=== PATIENT | female | born 1995 | race African-American/Black ===

== ENCOUNTER 2023-04-24 11:30 | Outpatient (CLI) | payer OTHER ==
[2023-04-24 18:44] LABS: BASOPHILS % (AUTO) 0.5 %; EOSINOPHILS % (AUTO) 0.7 %; HCT - HEMATOCRIT 38.2 % (37.0-47.0); HGB - HEMOGLOBIN 11.9 g/dL (12.0-16.0); LYMPHOCYTES # (AUTO) 1.6 10^3/uL (1.5-3.5); MEAN CORPUSCULAR HEMOGLOBIN 25.3 pg (27.0-31.0); MEAN CORPUSCULAR HGB CONC 31.2 g/dL (32.0-36.0); MEAN CORPUSCULAR VOLUME 81.3 fL (81.0-99.0); MEAN PLATELET VOLUME 10.7 fL (7.9-10.8); MONOCYTES # (AUTO) 0.2 10^3/uL (0.0-1.0); MONOCYTES % (AUTO) 5.2 %; NEUTROPHILS # (AUTO) 2.6 10^3/uL (1.5-6.6); NEUTROPHILS % (AUTO) 57.6 %; PLT - PLATELET COUNT 336 10^3/uL (130-450); RED CELL DISTRIBUTION WIDTH 13.7 % (12.0-15.0); WHITE BLOOD COUNT 4.4 x10^3/uL (4.8-10.8)
[2023-04-24 18:55] LABS: CALCIUM 9.9 mg/dL (8.5-10.3); CREATININE 0.8 mg/dL (0.6-1.3); CRP - C-REACTIVE PROTEIN 0.6 mg/dL (<0.5); POTASSIUM 3.8 mmol/L (3.5-4.5)
== END 2023-04-24 11:45 | disposition home or self-care (01) ==
LOC: LAB.N 11:30
PROVIDERS: ATTEND Emergency Medicine
DX: R51.9 Headache, unspecified (principal)
CPT/HCPCS: 36415; 80048; 85025; 85651; 86140

== ENCOUNTER 2023-11-24 16:35 | Outpatient (CLI) | payer OTHER ==
--- NOTE | 2023-11-25 17:40 | Ultrasound Report ---
PROCEDURE: Pelvic w/Transvaginal INDICATIONS: TROUBLE CONCEIVING TECHNIQUE: Real-time scanning was performed of the pelvic organs, with image documentation. Additional endovagi nal scanning was necessary due to incomplete visualization of the adnexal and endometrial structures by transabdominal scanning. COMPARISON: None. FINDINGS: Uterus: Uterus is anteverted and enlarged in size at 8.7 x 5.3 x 5.8 cm. The myometrium is heteroge neous. 2.5 x 2.4 x 2.2 cm subserosal fibroid in left anterior myometrium is seen. The endometrium saba sures 1.5 mm in combined thickness. No endometrial mass or fluid. Ovaries: The right ovary measures 3.6 x 2.4 x 2.0 cm, with a calculated ovarian volume of 9.25 cc. The left ovary measures 2.4 x 1 x 0.9 cm, with a calculated ovarian volume of 1.13 cc. The ovaries h ave a normal sonographic appearance. Likely corpus luteal cyst is seen in right ovary measures 1.4 x 2.0 x 1.6 cm in size. Less than 12 follicles can be seen in each ovary. No adnexal masses are seen. No cystic lesions measuring greater than 3 cm. Other: No pathologic free abdominal or pelvic fluid. IMPRESSION: 1. Single subserosal fibroid as described above. Mildly enlarged uterus with heterogeneous myometrial echotexture. No endometrial mass or fluid. 2. Likely corpus luteal cyst in right ovary as above. No solid-appearing ovarian lesion. Reviewed by: Camilo Hawthorne MD on 11/25/2023 5:38 PM PDT Approved by: Camilo Hawthorne MD on 11/25/2023 5:38 PM PDT Station ID: [id number]
== END 2023-11-24 16:36 | disposition home or self-care (01) ==
LOC: DI 16:35
PROVIDERS: ATTEND Nurse Practitioner Family
DX: D25.2 Subserosal leiomyoma of uterus (principal); N97.9 Female infertility, unspecified; N85.2 Hypertrophy of uterus

== ENCOUNTER 2024-05-01 16:15 | Outpatient (CLI) | payer OTHER | END 2024-05-01 16:16 | disposition home or self-care (01) | LOC: LAB 16:15 | PROVIDERS: ATTEND Obstetrics & Gynecology | DX: N97.0 Female infertility associated with anovulation (principal) | CPT/HCPCS: 36415; 84144 ==

== ENCOUNTER 2024-05-22 15:52 | Outpatient (CLI) | payer OTHER | END 2024-05-22 15:53 | disposition home or self-care (01) | LOC: LAB.N 15:52 | PROVIDERS: ATTEND Obstetrics & Gynecology | DX: N97.0 Female infertility associated with anovulation (principal) | CPT/HCPCS: 36415; 84144 ==

== ENCOUNTER 2025-02-10 06:53 | Inpatient (IN) ==
[2025-02-10] MEDS ORDERED: CARBOPROST TROMETHAMINE 250 MCG/ML VIAL IM PRN (08:23)
[2025-02-10] MEDS ORDERED: NIFEdipine 10 MG CAPSULE PO PRN ×2 (08:23→20:57)
[2025-02-10] MEDS ORDERED: LABETALOL 20 MG/4 ML SYRINGE IVP PRN ×5 (08:23→20:57)
[2025-02-10] MEDS ORDERED: OXYTOCIN/SODIUM CHLORIDE 500 ML IV PRN ×2 (08:23→20:57)
[2025-02-10] MEDS ORDERED: lidocaine 1% 20 ML MDV ID PRN (08:23)
[2025-02-10] MEDS ORDERED: DOCUSATE SODIUM 100 MG CAPSULE PO PRN (08:23)
[2025-02-10] MEDS ORDERED: hydrALAZINE INJ 20 MG/ML VIAL IVP PRN ×3 (08:23→20:57)
[2025-02-10] MEDS ORDERED: CALCIUM CARBONATE CHEW 500 MG TABLET PO PRN (08:23)
[2025-02-10] MEDS ORDERED: METHYLERGONOVINE 0.2 MG/ML VIAL IM PRN (08:23)
[2025-02-10] MEDS ORDERED: SODIUM CHLORIDE FLUSH 0.9% 10 ML SYRINGE IVP PRN (08:23)
[2025-02-10] MEDS ORDERED: ONDANSETRON ODT 4 MG TABLET PO PRN (08:23)
[2025-02-10] MEDS ORDERED: miSOPROStoL 200 MCG TABLET BC PRN (08:23)
[2025-02-10] MEDS ORDERED: TERBUTALINE 1 MG/ML VIAL SUBQ PRN (08:23)
[2025-02-10] MEDS ORDERED: OXYTOCIN 10 UNIT/ML VIAL IM PRN (08:23)
[2025-02-10] MEDS ORDERED: miSOPROStoL 200 MCG TABLET PR PRN (08:23)
--- NOTE | 2025-02-10 08:52 | HISTORY & PHYSICAL EXAMINATION ---
Admit History Smoking Status: Never smoker Other Maternal History Other Maternal History: HPI: Patient is a 29-year-old G1, P0 at 40 weeks 4 days gestation presenting with contractions. She been rodriguez strongly since yesterday and came to triage several times. She would like to stay even if means augmentation. She had mildly elevated blood pressures on arrival, but repeats were normal. Labs were normal.. She has good movement. Denies loss of fluid. No FORREST/BV or RUQP. No vaginal bleeding. Denies nausea and vomiting. Denies urinary urgency or dysuria. All other symptoms reviewed and were negative except per HPI. Course Low Dose Aspirin at 12 weeks ALLERGIES NKDA RX: PNV, Aspirin Obseity: NST at 36 weeks ordered. Blood type: A+ Antibody: negative CBC: H/H 10.5/33.4 plt 307 RUB:immune VZV:immune HBsAg:Negative HepC: NR RPR/AB-EIA: NR HIV: NR PAP:05/2023 - normal GC/CT: 07/22 negative HSV:Denies in self and partner Genetic testing: declines Influenza: declines Covid:Received initial series. Declines booster. 50gm OGCT: 113 3HR GTT: TDAP: 11/26/24 Breast Pump: has one RPR: NR 3rd trimester CBC: 12.2/36.5 212 EPDS: 0 GBS: 01/14/2025 neg Contraception: 6-week IUD. Meds/Allgy Home Medications Ambulatory Orders Medication Instructions Recorded Confirmed aspirin 81 mg tablet,delayed 81 mg PO QDAY 11/18/24 release (Adult Aspirin Regimen) vits no.126-ferrous fum 1 tab PO QDAY #30 tab s 12/16/24 02/04/25 28 mg iron-folic acid 800 mcg tablet (Classic ) Allergies Allergies Allergy/AdvReac Type Severity Reaction Status Date / Time No Known Drug Allergies Allergy Verified 01/22/25 15:16 PFSH Active Problems All Active Problems (Updated 02/10/25 @ 08:51 by Rell Bang MD) Elevated blood pressure reading without diagnosis of hypertension (Acute) 40 weeks gestation of (Acute) Obesity affecting in third trimester (Acute) Encounter for screening for Streptococcus B (Acute) Anemia affecting (Acute) Supervision of normal (Acute) (Acute) Family History Family History (Updated 06/24/24 @ 15:43 by Kandi Cabrera RN) Aunt Lung cancer Social History Social History (Updated 06/24/24 @ 15:44 by Kandi Cabrera RN) Smoking Status: Never smoker Second hand tobacco smoke exposure: No Do you vape?: No Living arrangement: At home Marital Status: Living Condition: With spouse/s.o. 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 Respiratory: Normal rate of respiration. No accessory muscle use, normal respiratory effort. Cardiovascular: Regular rate and rhythm Abdomen: Gravid, nontender, nondistended Extremities: Normal range of motion Neuro: Oriented x3. Normal movements Psych: Appropriate mood and affect. Normal judgment and insight SVE: 2/70/-1 FHT: 150 BPM baseline, moderate variability, accelerations absent, no decelerations. Nonreactive NST [place]: Every 3 minutes Plan for Labor Plan For Labor I expect patient to be DC'd or transferred within 96 hours.: Yes Conclusion/Plan Problem List (1) 40 weeks gestation of : Plan: Admit to L&D, admit labs, epidural at patient's request Will recheck cervix in 1 hour, if amenable, amniotomy. Will consider oxytocin if not progressing. (2) Elevated blood pressure reading without diagnosis of hypertension: Plan: Continue to monitor (3) Obesity affecting in third trimester: Plan: As above. Qualifiers: Obesity type affecting : other obesity due to excess calories Qualified Code(s): O99.213 - Obesity complicating , third trimester; E66.09 - Other obesity due to excess calories
--- OUTSIDE RECORDS SUMMARY | 2025-02-10 09:14 | EXTERNAL MEDICAL SUMMARY RPT | Continuity of Care Document ---
Author Organization [place] Address [address] [place] [id number] Phone Problems date description facility 2024-11-13 14:37 Encounter for superv ision of normal , unspecified, unspecified trimester [facility] 2024-11-14 00:04 Encounter for superv ision of normal , unspecified, unspecified trimester [facility] 2024-11-26 15:47 [facility] 2024-12-10 15:10 [facility] 2025-01-15 00:02 Encounter for screeni ng for Streptococcus B [facility] 2025-01-16 08:02 Encounter for screeni ng for Streptococcus B [facility] 2025-01-21 08:28 Encounter for screeni ng for Streptococcus B [facility] 2025-01-22 16:36 Obesity complicating , third trimester [facility] 2025-02-09 20:33 Encounter for superv ision of normal , unspecified, unspecified trimester [facility] Results/Labs test date facility value unit notes Result panel 1 MEAN PLATELET VOLUME 2024-11-13 15:47 [facility] 11.1 fl (missing) GLUCOSE,1H PP 50GM DOSE 2024-11-13 15:47 [facility] 113 mg/dl Social History date description facility
[2025-02-10 09:30] LABS: BASOPHILS % (AUTO) 0.2 %; HCT - HEMATOCRIT 41.1 % (37.0-47.0); LYMPHOCYTES # (AUTO) 1.2 10^3/uL (1.5-3.5); LYMPHOCYTES % (AUTO) 9.5 %; MEAN CORPUSCULAR HEMOGLOBIN 29.5 pg (27.0-31.0); MEAN CORPUSCULAR HGB CONC 34.1 g/dL (32.0-36.0); MEAN CORPUSCULAR VOLUME 86.7 fL (81.0-99.0); MONOCYTES # (AUTO) 0.6 10^3/uL (0.0-1.0); MONOCYTES % (AUTO) 4.6 %; NEUTROPHILS # (AUTO) 10.6 10^3/uL (1.5-6.6); NEUTROPHILS % (AUTO) 85.5 %; PLT - PLATELET COUNT 179 10^3/uL (130-450); RED BLOOD COUNT 4.74 10^6/uL (4.20-5.40); RED CELL DISTRIBUTION WIDTH 13.2 % (12.0-15.0); WHITE BLOOD COUNT 12.4 x10^3/uL (4.8-10.8)
[2025-02-10 09:46] LABS: ALBUMIN 3.6 g/dL (3.2-5.5); ALBUMIN/GLOBULIN RATIO 1.3 (1.0-2.2); BILIRUBIN,TOTAL 0.4 mg/dL (0.2-1.0); CALCIUM 9.4 mg/dL (8.5-10.3); CREATININE 0.6 mg/dL (0.6-1.3); POTASSIUM 3.7 mmol/L (3.5-4.5); TOTAL PROTEIN 6.3 g/dL (6.4-8.9)
[2025-02-10] MEDS: SODIUM CHLORIDE FLUSH 0.9% 10 ML SYRINGE IVP SCH (10:42)
[2025-02-10] MEDS: fentaNYL 100 MCG/2 ML VIAL IVP PRN (11:11)
--- NOTE | 2025-02-10 11:37 | PHARMACY PROGRESS NOTE ---
Best Possible Medication History Admit Date and Time: 02/10/25 [id number] Home Medications Medication Instructions Recorded Confirmed Type aspirin 81 mg tablet,delayed 81 mg PO DAILY 11/18/24 0 02/10/25 History release (Adult Aspirin Regimen) vits no.126-ferrous fum 1 tab PO DAILY 02/10/25 History 28 mg iron-folic acid 800 mcg tablet (Classic ) Processed by: Pharmacy Medications reviewed in ED?: No Medication History completed: Yes Patient Interview: Pt unable to participate Secondary Source(s): Physician records and Previous admit records [facility] Statement: As the person ultimately responsible for medication therapy, providers are able to order a medication from an existing home medication list in [facility] via the "Reconcile Routine" prior to Confirmation of that medication by production support developer. Such practice is discouraged except when the physician, in their clinical judgment, deems that a medical need exists for a medication without regard to previous use.
[2025-02-10] MEDS ORDERED: ROPIVACAINE 0.2% 200 MG/100 ML BAG EP ONE (12:27)
[2025-02-10] MEDS: LACTATED RINGERS 1,000 ML IV PRN (12:28)
[2025-02-10] MEDS ORDERED: ONDANSETRON 4 MG/2 ML VIAL IVP PRN (13:09)
[2025-02-10] MEDS ORDERED: NALOXONE 0.4 MG/ML VIAL IVP PRN ×2 (13:09→20:57)
[2025-02-10] MEDS ORDERED: diphenhydrAMINE INJ 50 MG/ML VIAL IVP PRN (13:09)
[2025-02-10] MEDS ORDERED: ROPIVACAINE 0.2% 200 MG/100 ML BAG EP PRN (13:09)
[2025-02-10] MEDS ORDERED: METOCLOPRAMIDE 10 MG/2 ML VIAL IVP PRN (13:09)
[2025-02-10] MEDS ORDERED: LACTATED RINGERS 500 ML IV ONE (13:09)
[2025-02-10] MEDS ORDERED: NALBUPHINE 10 MG/ML AMP IVP PRN (13:09)
[2025-02-10] MEDS ORDERED: ePHEDrine 50 MG/ML VIAL IVP ONE (13:12)
--- NOTE | 2025-02-10 13:12 | ANESTHESIA PROCEDURE NOTE ---
Pre-Anesthesia VS, & Labs Diagnosis Surgical Diagnosis:: active labor Procedure Procedure: labor epidural Vitals Vital Signs: Temp Pulse Resp BP 36.8 C 88 16 141/83 H 02/10/25 08:29 02/10/25 08:29 02/10/25 08:29 02/10/25 08:29 NPO NPO: >8 hours Is Patient ?: Yes Lab Results Current Lab Results: Laboratory Tests 02/10/25 09:00: WBC 12.4 H, RBC 4.74, Hgb 14.0, Hct 41.1, MCV 86.7, MCH 29.5, MCHC 34.1, RDW 13.2, Plt Count 179, MPV 12.0 H, Neut # (Auto) 10.6 H, Lymph # (Auto) 1.2 L, [place] # (Auto) 0.6, Eos # (Auto) 0.0, Baso # (Auto) 0.0, Absolute Nucleated RBC 0.00, Nucleated RBC % 0.0, Sodium 137, Potassium 3.7, Chloride 107, Carbon Dioxide 21, Anion Gap 9.0, BUN 7, Creatinine 0.6, Estimated GFR (MDRD) 141, Glucose 116 H, Calcium 9.4, Total Bilirubin 0.4, AST 18, ALT 12, Alkaline Phosphatase 85, Total Protein 6.3 L, Albumin 3.6, Globulin 2.7, Albumin/Globulin Ratio 1.3, Blood Type A POSITIVE, Antibody Screen NEGATIVE 02/10/25 09:00 02/10/25 09:00 Meds/Allgy Home Medications Ambulatory Orders Medication Instructions Recorded Confirmed aspirin 81 mg tablet,delayed 81 mg PO DAILY 11/18/24 0 02/10/25 release (Adult Aspirin Regimen) vits no.126-ferrous fum 1 tab PO DAILY 02/10/25 28 mg iron-folic acid 800 mcg tablet (Classic ) Allergies Allergies Allergy/AdvReac Type Severity Reaction Status Date / Time No Known Drug Allergies Allergy Verified 01/22/25 15:16 PFSH Active Problems All Active Problems (Updated 02/10/25 @ 08:51 by Rell Bang MD) Elevated blood pressure reading without diagnosis of hypertension (Acute) 40 weeks gestation of (Acute) Obesity affecting in third trimester (Acute) Encounter for screening for Streptococcus B (Acute) Anemia affecting (Acute) Supervision of normal (Acute) (Acute) Family History Family History (Updated 06/24/24 @ 15:43 by Kandi Cabrera RN) Aunt Lung cancer Social History Social History (Updated 06/24/24 @ 15:44 by Kandi Cabrera RN) Smoking Status: Never smoker Second hand tobacco smoke exposure: No Do you dip or chew tobacco?: No Do you vape?: No Living arrangement: At home Marital Status: Living Condition: With spouse/s.o. Do you feel safe in your home environment?: Yes Suffered physical, verbal, emotional, or financial abuse?: No History of Abuse: No ETOH Use: None Substance Use: denies use Are you sexually active?: Yes Occupation: Teacher Anesthesia Exam (Expanded) Exam General: Alert, Oriented x3, Cooperative and Moderate distress Dental: WNL Mouth Opening: Greater than 4 Fingerbreadths Neck Mobility: Normal Mallampati classification: II Thyromental Distance: greater than 6 cm Respiratory: Lungs clear Cardiovascular: Regular rate Exam Exam Vital Signs: Vital Signs x48h Temp Pulse Resp BP 02/10/25 08:29 36.8 C 88 16 141/83 H Plan Problem List (1) 40 weeks gestation of : Plan: Admit to L&D, admit labs, epidural at patient's request Will recheck cervix in 1 hour, if amenable, amniotomy. Will consider oxytocin if not progressing. (2) Elevated blood pressure reading without diagnosis of hypertension: Plan: Continue to monitor (3) Obesity affecting in third trimester: Plan: As above. Qualifiers: Obesity type affecting : other obesity due to excess calories Qualified Code(s): O99.213 - Obesity complicating , third trimester; E66.09 - Other obesity due to excess calories Plan Anesthesia Type: Epidural Consent for Procedure(s) Verified and Reviewed: Yes Code Status: Attempt Resuscitation ASA Classification ASA classification: 2-Mild systemic disease Is this case an emergency?: No
[2025-02-10] MEDS: ePHEDrine 50 MG/ML VIAL IVP PRN (13:15)
--- NOTE | 2025-02-10 13:31 | PROVIDER PROGRESS NOTE ---
Subjective Subjective Subjective: Patient very comfortable following epidural placement. Drop in blood pressure following epidural, followed by significant decelerations. Anesthesia aware and ephedrine given IV push x 1 dose. SVE 5/100/-2 intact. Decided to hold on amniotomy until strip more reassuring. Will place order for IV pitocin augmentation when can safely be titrated by unit protocol. Will consider amniotomy as next intervention if not spontaneously ruptured at this time. Current Medications Current Medications Current Medications: Current Medications Generic Name Dose Route Start Last Admin Trade Name Freq PRN Reason Stop Dose Admin Acetaminophen 1,000 mg 02/10/25 08:23 Acetaminophen 500 Mg Tablet PO Q8HR PRN Mild Pain or Fever>38C(100.4F) Calcium Carbonate/Glycine 1,000 mg 02/10/25 08:23 Calcium Carbonate Chew 500 Mg Tablet PO Q6HR PRN Heartburn Carboprost Tromethamine 250 mcg 02/10/25 08:23 Carboprost Tromethamine 250 Mcg/Ml Vial IM .ONCE PRN Hemorrhage Diphenhydramine HCl 12.5 - 25 mg 02/10/25 13:09 Diphenhydramine Inj 50 Mg/Ml Vial IVP Q6HR PRN ITCHING Docusate Sodium 200 mg 02/10/25 08:23 Docusate Sodium 100 Mg Capsule PO BID PRN Constipation Ephedrine Sulfate 5 mg 02/10/25 13:09 02/10/25 13:15 Ephedrine 50 Mg/Ml Vial IVP 5 mg Q5M PRN Administration For SBP<100;give until SBP>100 Fentanyl 50 mcg 02/10/25 08:23 02/10/25 12:11 Fentanyl 100 Mcg/2 Ml Vial IVP 50 mcg Q1H PRN Administration Severe Pain (score 7-10) Hydralazine HCl 5 - 10 mg 02/10/25 08:23 Hydralazine Inj 20 Mg/Ml Vial IVP Q20M PRN SBP> or= 160 OR DBP> or= 110 Protocol Lactated Ringer's 500 mls @ 999 mls/hr 02/10/25 08:23 Lr IV PRN PRN PER PHYSICIAN ORDER Oxytocin/Sodium Chloride 500 mls @ 999 mls/hr 02/10/25 08:23 Pitocin/Sodium Chloride IV PRN PRN POST- HEMORR PREVENTION Protocol 999 MILLIUNIT/MIN Tranexamic Acid 1,000 mg in 100 mls @ 600 mls/hr 02/10/25 08:23 Tranexamic 1,000 Mg/100ml-Nacl IV Q30M PRN EBL >1200mL and within 3hr Lactated Ringer's 500 mls @ 999 mls/hr 02/10/25 13:09 Lr IV 02/10/25 13:39 ONCE ONE Ropivacaine 200 mg in 100 mls @ 0 mls/hr 02/10/25 13:09 Naropin 0.2% EP PRN PRN PAIN Protocol Per Protocol Labetalol HCl 20 - 80 mg 02/10/25 08:23 Labetalol 20 Mg/4 Ml Syringe IVP Q10M PRN SBP> or= 160 OR DBP> or= 110 Protocol Labetalol HCl 20 mg 02/10/25 08:23 Labetalol 20 Mg/4 Ml Syringe IVP .ONCE PRN SBP> or= 160 OR DBP> or= 110 Protocol Labetalol HCl 20 - 40 mg 02/10/25 08:23 Labetalol 20 Mg/4 Ml Syringe IVP Q10M PRN SBP> or= 160 OR DBP> or= 110 Protocol Lidocaine HCl 20 ml 02/10/25 08:23 Lidocaine 1% 20 Ml Mdv ID 02/13/25 08:23 .ONCE PRN PERINEAL REPAIR Methylergonovine Maleate 0.2 mg 02/10/25 08:23 Methylergonovine 0.2 Mg/Ml Vial IM .ONCE PRN Hemorrhage Metoclopramide HCl 10 mg 02/10/25 13:09 Metoclopramide 10 Mg/2 Ml Vial IVP Q6HR PRN Nausea / Vomiting Misoprostol 600 mcg 02/10/25 08:23 Misoprostol 200 Mcg Tablet BC .ONCE PRN Hemorrhage Misoprostol 800 mcg 02/10/25 08:23 Misoprostol 200 Mcg Tablet MN .ONCE PRN Hemorrhage Nalbuphine HCl 2.5 - 5 mg 02/10/25 13:09 Nalbuphine 10 Mg/Ml Amp IVP Q4H PRN ITCHING Naloxone HCl 0.1 mg 02/10/25 13:09 Naloxone 0.4 Mg/Ml Vial IVP Q2M PRN RR<8 Nifedipine 10 - 20 mg 02/10/25 08:23 Nifedipine 10 Mg Capsule PO Q20M PRN SBP> or= 160 OR DBP> or= 110 Protocol Ondansetron HCl 4 mg 02/10/25 08:23 Ondansetron Odt 4 Mg Tablet PO Q4HR PRN Nausea / Vomiting Ondansetron HCl 4 mg 02/10/25 13:09 Ondansetron 4 Mg/2 Ml Vial IVP Q6HR PRN Nausea / Vomiting Oxytocin 10 unit 02/10/25 08:23 Oxytocin 10 Unit/Ml Vial IM .ONCE PRN Step One if no IV access. Sodium Chloride 10 ml 02/10/25 08:23 Sodium Chloride Flush 0.9% 10 Ml Syringe IVP PRN PRN NEEDED PER PROVIDER ORDERS Sodium Chloride 10 ml 02/10/25 09:00 02/10/25 10:42 Sodium Chloride Flush 0.9% 10 Ml Syringe IVP 10 ml Q8H АНДРЕЙ Administration Terbutaline Sulfate 0.25 mg 02/10/25 08:23 Terbutaline 1 Mg/Ml Vial SUBQ .ONCE PRN Tachystole Objective Vital Signs/Intake & Output Vital Signs: Vital Signs x48h Temp Pulse Resp BP 02/10/25 08:29 36.8 C 88 16 141/83 H Intake & Output: Intake & Output 02/07/25 02/08/25 02/09/25 02/10/25 23:59 23:59 23:59 23:59 Weight (kg) 258 lb 15.985 oz Lab Results 02/10/25 09:00 02/10/25 09:00 Other Labs: Lab Results x24hrs 02/10/25 Range/Units 09:00 WBC 12.4 H (4.8-10.8) x10^3/uL RBC 4.74 (4.20-5.40) 10^6/uL Hgb 14.0 (12.0-16.0) g/dL Hct 41.1 (37.0-47.0) % MCV 86.7 (81.0-99.0) fL MCH 29.5 (27.0-31.0) pg MCHC 34.1 (32.0-36.0) g/dL RDW 13.2 (12.0-15.0) % Plt Count 179 (130-450) 10^3/uL MPV 12.0 H (7.9-10.8) fL Neut # (Auto) 10.6 H (1.5-6.6) 10^3/uL Lymph # (Auto) 1.2 L (1.5-3.5) 10^3/uL [place] # (Auto) 0.6 (0.0-1.0) 10^3/uL Eos # (Auto) 0.0 (0.0-0.7) 10^3/uL Baso # (Auto) 0.0 (0.0-0.1) 10^3/uL Absolute Nucleated RBC 0.00 x10^3/uL Nucleated RBC % 0.0 /100WBC Sodium 137 (135-145) mmol/L Potassium 3.7 (3.5-4.5) mmol/L Chloride 107 (101-111) mmol/L Carbon Dioxide 21 (21-32) mmol/L Anion Gap 9.0 (6-13) BUN 7 (6-20) mg/dL Creatinine 0.6 (0.6-1.3) mg/dL Estimated GFR (MDRD) 141 (>89) Glucose 116 H (74-104) mg/dL Calcium 9.4 (8.5-10.3) mg/dL Total Bilirubin 0.4 (0.2-1.0) mg/dL AST 18 (10-42) IU/L ALT 12 (10-60) IU/L Alkaline Phosphatase 85 (42-121) IU/L Total Protein 6.3 L (6.4-8.9) g/dL Albumin 3.6 (3.2-5.5) g/dL Globulin 2.7 (2.1-4.2) g/dL Albumin/Globulin Ratio 1.3 (1.0-2.2) Blood Type A POSITIVE Antibody Screen NEGATIVE Assessment/Plan Problem List (1) 40 weeks gestation of : (2) Elevated blood pressure reading without diagnosis of hypertension: (3) Obesity affecting in third trimester: Qualifiers: Obesity type affecting : other obesity due to excess calories Qualified Code(s): O99.213 - Obesity complicating , third trimester; E66.09 - Other obesity due to excess calories
[2025-02-10] MEDS: OXYTOCIN/SODIUM CHLORIDE 500 ML IV SCH (14:53)
[2025-02-10] MEDS: ACETAMINOPHEN 500 MG TABLET PO PRN (18:11)
--- NOTE | 2025-02-10 18:15 | PROVIDER PROGRESS NOTE ---
Labor Progress Note Labor Progress Note Labor Progress Note/Additional Text: SROM 1705, clear fluid. Patient feeling increased pressure, SVE 8/100/0 pitocin 4mu/min but decreased to 2mu/min r/t tachysystole. Patient afebrile 98.4F, increasing maternal pulse (up to 130's) but shivering. Slowly increasing FHT baseline 155-160 with excellent variability, + accelerations, - decelerations. Will trial PO tylenol.
[2025-02-10] MEDS: TRANEXAMIC ACID IN NACL 1,000 MG/100 ML BAG IV PRN (20:02)
[2025-02-10] MEDS ORDERED: SIMETHICONE CHEW 80 MG TABLET PO PRN (20:57)
[2025-02-10] MEDS ORDERED: IBUPROFEN 600 MG TABLET PO PRN (20:57)
[2025-02-10] MEDS ORDERED: LABETALOL 5 MG/1 ML 20 ML MDV IVP PRN (20:57)
[2025-02-10] MEDS: DOCUSATE SODIUM 100 MG CAPSULE PO SCH (21:00)
--- NOTE | 2025-02-10 21:17 | DELIVERY NOTE ---
Delivery Note Delivery Comments (Free Text/Narrative) Delivery Comments (Free Text/Narrative): This 29 -year-old, @ 40+4 weeks gestation presented on 02/10/2025 @ 0800 and in stable condition. Cervix was 3cm and Vertex presentation by kane's. GBS negative. Contractions continued to increase in intensity and duration. Minimal cervical change by lunchtime and she desired an epidural. Following epidural she had a stretch of recurrent late/variables that resolved with fluid bolus and ephedrine. recovery with return to near baseline pressures. Oxytocin maximum dose 4mu/min was initated prior to second stage. FHR pattern demonstrated 155 baseline in a category I prior to second stage. Normal labor course. SROM @ 1705. She then progressed to complete/complete @ 1825 and second stage began. : Normal spontaneous vaginal delivery of a viable female on 02/10/2025 @ 1956. No nuchal cord. Attempted delivery of the body was unsuccessful, despite gentle traction of the head. Asked for [place] position, and attempted removal of posterior arm. After assessing the patient and attempting rotational maneuvers, the anterior shoulder had already been rotated out of impaction, but the large body was not delivering with gentle traction. I attempted to remove the posterior arm, but was unable, so I was able to place my fingers under the posterior axilla and deliver the posterior (right) shoulder with gentle traction. The rest of the body delivered thereafter and was placed on mother's chest where she was stimulated and responded well. On exam, she appeared to have movement of bilateral upper extremities. We discussed the shoulder dystocia with the family. In total 60 seconds elapse for delivery of head to delivery of body including reduction of nuchal cord and resolution of shoulder dystocia. The was placed on maternal abdomen, stimulated, dried and placed skin to skin. Apgars 7 & 8 @ 1 & 5 minutes. The umbilical cord was allowed to stop pulsating at which time it was doubly clamped by delivering provider and cut by FOB. 3VC. Cord blood was obtained. Fundal massage and gently cord traction applied for active management of the third stage, placenta delivered spontaneously and intact and appeared normal @ 2000. Pitocin administered via IV for hemostasis and allowed to run freely. EBL 600cc. TXA administered in tandem with pitocin for brisk bleeding which slowly resolved. Placenta was not sent to pathology. Uterine massage was performed until uterus was deemed firm. weight pending at this time. Inspection of the perineum noted a first-degree midline laceration. The laceration was repaired under epidural anesthesia with running 3-0 vicryl rapide, repaired in standards fashion under sterile conditions. Upon re- inspection the patient was hemostatic. Uterus again massaged and found to be firm. Needle and sponge counts were correct. Uterine fundus firm and there is no excessive bleeding. Tissues well approximated. Skin to skin initiated. Family bonding well. Both mother and baby are in stable condition.
[2025-02-11 08:01] LABS: HCT - HEMATOCRIT 32.6 % (37.0-47.0); HGB - HEMOGLOBIN 11.1 g/dL (12.0-16.0); MEAN CORPUSCULAR HEMOGLOBIN 29.5 pg (27.0-31.0); MEAN CORPUSCULAR VOLUME 86.7 fL (81.0-99.0); MEAN PLATELET VOLUME 10.6 fL (7.9-10.8); RED BLOOD COUNT 3.76 10^6/uL (4.20-5.40); RED CELL DISTRIBUTION WIDTH 13.4 % (12.0-15.0); WHITE BLOOD COUNT 20.9 x10^3/uL (4.8-10.8)
[2025-02-11 08:17] LABS: ALBUMIN 2.9 g/dL (3.2-5.5); ALBUMIN/GLOBULIN RATIO 1.3 (1.0-2.2); BILIRUBIN,TOTAL 0.5 mg/dL (0.2-1.0); CALCIUM 8.7 mg/dL (8.5-10.3); CREATININE 0.7 mg/dL (0.6-1.3); POTASSIUM 3.4 mmol/L (3.5-4.5); TOTAL PROTEIN 5.1 g/dL (6.4-8.9)
--- NOTE | 2025-02-11 11:07 | PROVIDER PROGRESS NOTE ---
Subjective Subjective Subjective: Ginger Mora, a 29-year-old now on day one following vaginal delivery with a 60-second shoulder dystocia and 600mL blood loss. Diagnosed with gestational hypertension following admission for labor yesterday. Patient sustained a first-degree midline laceration but reports feeling well with stable vital signs after initial tachycardia. Hemoglobin decreased from 14.0 to 11.1 g/dL. Plan includes continued monitoring of blood pressure, hemoglobin levels, and liver function with potential discharge tonight or tomorrow pending patient and status. follow-up after spontaneous vaginal delivery PPD#1 Delivery details: - Spontaneous vaginal delivery on February 10, 2025 at 19:56 - Viable female - Complications: - 60-second shoulder dystocia - Estimated blood loss of 600 mL - First-degree midline laceration Current status: - Overall feeling well - assistance by RN team - Baby doing well. - Fundus firm with light bleeding - Blood pressure monitored: recent readings 122/60, 97/73, 133/67 - Experienced tachycardia (HR 120-130) until 5 AM, then baseline changed to 80s - Continuing inpatient monitoring - Potential discharge tonight or tomorrow, depending on progress and baby's condition symptoms: - Light bleeding - No significant swelling - FF @U No increased work of bleeding Obstetric History: - GTPAL: G1 T1 L1 Medical History: - Diagnosed with gestational hypertension during inpatient stay Review of Systems: - General: Positive for feeling overall well - Cardiovascular: Negative for significant swelling Current Medications Current Medications Current Medications: Current Medications Generic Name Dose Route Start Last Admin Trade Name Freq PRN Reason Stop Dose Admin Acetaminophen 1,000 mg 02/10/25 08:23 02/11/25 09:13 Acetaminophen 500 Mg Tablet PO 1,000 mg Q8HR PRN Administration Mild Pain or Fever>38C(100.4F) Acetaminophen 1,000 mg 02/10/25 20:57 Acetaminophen 500 Mg Tablet PO Q8HR PRN Mild Pain or Fever>38C(100.4F) Calcium Carbonate/Glycine 1,000 mg 02/10/25 08:23 Calcium Carbonate Chew 500 Mg Tablet PO Q6HR PRN Heartburn Diphenhydramine HCl 12.5 - 25 mg 02/10/25 13:09 Diphenhydramine Inj 50 Mg/Ml Vial IVP Q6HR PRN ITCHING Docusate Sodium 200 mg 02/10/25 08:23 Docusate Sodium 100 Mg Capsule PO BID PRN Constipation Docusate Sodium 100 mg 02/10/25 21:00 02/11/25 09:13 Docusate Sodium 100 Mg Capsule PO 100 mg BID АНДРЕЙ Administration Ephedrine Sulfate 5 mg 02/10/25 13:09 02/10/25 13:15 Ephedrine 50 Mg/Ml Vial IVP 5 mg Q5M PRN Administration For SBP<100;give until SBP>100 Hydralazine HCl 5 - 10 mg 02/10/25 08:23 Hydralazine Inj 20 Mg/Ml Vial IVP Q20M PRN SBP> or= 160 OR DBP> or= 110 Protocol Hydralazine HCl 10 mg 02/10/25 20:57 Hydralazine Inj 20 Mg/Ml Vial IVP .ONCE PRN SBP> or= 160 OR DBP> or= 110 Protocol Hydralazine HCl 5 - 10 mg 02/10/25 20:57 Hydralazine Inj 20 Mg/Ml Vial IVP Q20M PRN SBP >=160 and/or DBP >=110 Protocol Oxytocin/Sodium Chloride 500 mls @ 2 mls/hr 02/10/25 14:00 02/10/25 20:30 Pitocin/Sodium Chloride IV Infused TITR АНДРЕЙ Titration Protocol 2 MILLIUNIT/MIN Oxytocin/Sodium Chloride 500 mls @ 999 mls/hr 02/10/25 20:57 Pitocin/Sodium Chloride IV PRN PRN POST- HEMORR PREVENTION Protocol 999 MILLIUNIT/MIN Ibuprofen 600 mg 02/10/25 20:57 Ibuprofen 600 Mg Tablet PO Q6HR PRN Moderate Pain (Level 4-6) Labetalol HCl 20 - 80 mg 02/10/25 08:23 Labetalol 20 Mg/4 Ml Syringe IVP Q10M PRN SBP> or= 160 OR DBP> or= 110 Protocol Labetalol HCl 20 mg 02/10/25 08:23 Labetalol 20 Mg/4 Ml Syringe IVP .ONCE PRN SBP> or= 160 OR DBP> or= 110 Protocol Labetalol HCl 20 - 40 mg 02/10/25 08:23 Labetalol 20 Mg/4 Ml Syringe IVP Q10M PRN SBP> or= 160 OR DBP> or= 110 Protocol Labetalol HCl 20 - 80 mg 02/10/25 20:57 Labetalol 5 Mg/1 Ml 20 Ml Mdv IVP Q10M PRN SBP> or= 160 OR DBP> or= 110 Protocol Labetalol HCl 20 - 40 mg 02/10/25 20:57 Labetalol 20 Mg/4 Ml Syringe IVP Q10M PRN SBP> or= 160 OR DBP> or= 110 Protocol Labetalol HCl 20 mg 02/10/25 20:57 Labetalol 20 Mg/4 Ml Syringe IVP .ONCE PRN SBP >=160 and/or DBP >=110 Protocol Naloxone HCl 0.4 mg 02/10/25 20:57 Naloxone 0.4 Mg/Ml Vial IVP .ONCE PRN Opioid Overdose Nifedipine 10 - 20 mg 02/10/25 08:23 Nifedipine 10 Mg Capsule PO Q20M PRN SBP> or= 160 OR DBP> or= 110 Protocol Nifedipine 10 - 20 mg 02/10/25 20:57 Nifedipine 10 Mg Capsule PO Q20M PRN SBP >=160 and/or DBP >=110 Protocol Simethicone 80 mg 02/10/25 20:57 Simethicone Chew 80 Mg Tablet PO TID PRN Gas Sodium Chloride 10 ml 02/10/25 08:23 Sodium Chloride Flush 0.9% 10 Ml Syringe IVP PRN PRN NEEDED PER PROVIDER ORDERS Objective Vital Signs/Intake & Output Reviewed Vital Signs: Yes Vital Signs: Vital Signs - Blood Pressure: 122/60 mmHg - Heart Rate: 80s bpm Physical Examination - Abdomen: Fundus firm at uterus. Light amount of bleeding noted. - Musculoskeletal: No significant swelling observed. Laboratory, Imaging, and Diagnostic Test Results - Date: 02/11/2025 (Morning labs) - CBC: Hemoglobin 11.1 g/dL, Hematocrit 32.6%, Platelets 150 - CMP: Creatinine 0.7, AST 19, ALT 10, LKFAS 73 - Date: 02/10/2025 (Admission) - CBC: Hemoglobin 14.0 g/dL, Hematocrit 41.1%Vital Signs x48h Temp Pulse Resp BP Pulse Ox 02/11/25 09:17 36.8 C 88 18 122/60 98 02/11/25 05:22 36.3 C L 84 16 97/73 100 Intake & Output: Intake & Output 02/08/25 02/09/25 02/10/25 02/11/25 23:59 23:59 23:59 23:59 Intake Total 1600 / 1600 Output Total 612 / 612 400 / 400 Balance 988 / 988 -400 / -400 Weight (kg) 258 lb 15.985 oz Lab Results 02/11/25 07:55 02/11/25 07:55 Other Labs: Lab Results x24hrs 02/11/25 02/10/25 Range/Units 07:55 09:00 WBC 20.9 H (4.8-10.8) x10^3/uL RBC 3.76 L (4.20-5.40) 10^6/uL Hgb 11.1 L (12.0-16.0) g/dL Hct 32.6 L (37.0-47.0) % MCV 86.7 (81.0-99.0) fL MCH 29.5 (27.0-31.0) pg MCHC 34.0 (32.0-36.0) g/dL RDW 13.4 (12.0-15.0) % Plt Count 150 (130-450) 10^3/uL MPV 10.6 (7.9-10.8) fL Sodium 136 (135-145) mmol/L Potassium 3.4 L (3.5-4.5) mmol/L Chloride 108 (101-111) mmol/L Carbon Dioxide 23 (21-32) mmol/L Anion Gap 5.0 L (6-13) BUN 8 (6-20) mg/dL Creatinine 0.7 (0.6-1.3) mg/dL Estimated GFR (MDRD) 118 (>89) Glucose 91 (74-104) mg/dL Calcium 8.7 (8.5-10.3) mg/dL Total Bilirubin 0.5 (0.2-1.0) mg/dL AST 19 (10-42) IU/L ALT 10 (10-60) IU/L Alkaline Phosphatase 73 (42-121) IU/L Total Protein 5.1 L (6.4-8.9) g/dL Albumin 2.9 L (3.2-5.5) g/dL Globulin 2.2 (2.1-4.2) g/dL Albumin/Globulin Ratio 1.3 (1.0-2.2) Blood Type A POSITIVE Antibody Screen NEGATIVE Assessment/Plan Problem List (1) Obesity affecting in third trimester: Impression: status - 29-year-old G1b0 female on day 1 - Spontaneous vaginal delivery with shoulder dystocia on 02/10 at 09:56 - Viable female infant delivered - 62-second shoulder dystocia - Estimated blood loss 600 mL - First-degree midline laceration - course uncomplicated thus far - Fundus firm at umbilicus with light bleeding - Patient reports feeling well overall Plan: a. Continue monitoring b. Reassess for potential discharge tonight or tomorrow, contingent on patient and infant status Qualifiers: Obesity type affecting : other obesity due to excess calories Qualified Code(s): O99.213 - Obesity complicating , third trimester; E66.09 - Other obesity due to excess calories (2) care and examination of lactating mother: (3) Vaginal delivery: (4) hemorrhage: Impression: anemia - Morning labs: hemoglobin 11.1 g/dL, hematocrit 32.6% - Decreased from admission values: hemoglobin 14 g/dL, hematocrit 41.1% - Tachycardic (120-130 bpm) until approximately 5 AM - Heart rate baseline changed to 80s bpm Plan: a. Continue monitoring hemoglobin and hematocrit levels b. Monitor vital signs, particularly heart rate (5) Gestational hypertension affecting first : Impression: Gestational hypertension - Diagnosed during inpatient stay - Recent blood pressure readings show improvement: 122/60 (most recent), 97/73 (earlier this morning), 133/67 (around 2 AM) Plan: a. Continue blood pressure monitoring Liver function - CMP this morning shows improved liver function - AST 19 U/L, ALT 10 U/L, alkaline phosphatase 73 U/L Plan: a. Continue monitoring liver function tests
[2025-02-11 23:19] VITALS: O2SAT 99
[2025-02-12] MEDS: ACETAMINOPHEN 500 MG TABLET PO PRN (03:01)
--- NOTE | 2025-02-12 08:34 | Discharge Summary ---
Discharge Summary HOSPITAL COURSE Hospital Course: Date of Admission: 02/10/2025 Date of Discharge: 02/12/2025 Diagnosis on Admission: 1. 40wk gestation of 2. Elevated blood pressure without the diagnosis of hypertension 3. Obesity affecting Diagnosis on Discharge: 1. 29yo PPD#2 s/p TSVD viable female infant 2. Gestational hypertension - normotensive 3. 4. Normal recovery Brief History: She is a patient of [facility] who presented on 02/10/2025 in early labor. Cervix was 3cm and vertex by kane's with intact membranes. Epidural was placed per maternal request. Pitocin initiated for augmentation of labor with a maximum infusion rate of 4mU/min. SROM occurred at 1705 and was noted to be a moderate amount of clear fluid. She spontaneously progressed to deliver a viable female on 02/10/2025 @ 1956 following a 60 second shoulder dystocia. Perineum noted to have a 1st degree laceration which was repaired using a 3-[address]-1 needle in standard fashion and under sterile conditions. Apgars were 7/8 at 1 and 5 minutes respectively. Increased rate of bleeding noted and both pitocin IV and TXA were administered with achievement of adequate hemostasis. EBL 600mL. She has been doing well in her course. She is ambulating and tolerating a regular diet. She is urinating without difficulty and her lochia is normal. Her pain is well controlled with oral medications. She will be discharged home today on day #2 with instructions to continue taking her vitamin while and to continue taking Ibuprofen and Tylenol over the counter as needed for pain management. She intends to follow up with myself at [facility] in 1 week for routine visit or sooner if needed. She has been given precautions to call if she has any worsening fevers, chills, abdominal pain, increased vaginal bleeding or foul smelling vaginal lochia. In addition she has been given close preeclampsia precautions secondary to elevated blood pressure with the diagnosis of gestational hypertension following admission in labor. She will be given a blue preeclampsia wrist band to wear until 6 weeks . Physical Exam: Normocephalic, atraumatic. Heart RRR w/o M/G/R, lungs CTAB, abdomen soft and nontender with fundus firm at U-1, perineum intact, light lochia rubra, bilateral LE's no edema. Mood is good. ALLERGIES Allergies Allergy/AdvReac Type Severity Reaction Status Date / Time No Known Drug Allergies Allergy Verified 01/22/25 15:16 MEDICATIONS Ambulatory Orders Medication Instructions Recorded Confirmed vits no.126-ferrous fum 1 tab PO DAILY 02/10/25 28 mg iron-folic acid 800 mcg tablet (Classic ) acetaminophen 500 mg tablet 1,000 mg (2 x 500 mg) PO Q 8HR PRN 02/12/25 (Tylenol Extra Strength) Mild Pain Or Fever>38c(100.4 f) #30 tabs docusate sodium 100 mg capsule 100 mg PO BID #30 caps 02/12/25 ibuprofen 600 mg tablet 600 mg PO Q6HR PRN Moderate Pain 02/12/25 (Level 4-6) #30 tabs LABS 02/11/25 07:55 02/11/25 07:55 Discharge Plan Discharge Patient Disposition: 01 Home, Self Care Prescriptions: New acetaminophen [Tylenol Extra Strength] 500 mg Tablet 1,000 mg PO Q8HR PRN (Reason: Mild Pain Or Fever>38c(100.4f)) Qty: 30 0RF docusate sodium 100 mg Capsule 100 mg PO BID Qty: 30 0RF ibuprofen 600 mg Tablet 600 mg PO Q6HR PRN (Reason: Moderate Pain (Level 4-6)) Qty: 30 0RF Continued Classic 28 mg iron- 800 mcg tablet 1 tab PO DAILY Discontinued aspirin [Adult Aspirin Regimen] 81 mg tablet,delayed release (DR/EC) 81 mg PO DAILY Print Language: Bermudian Patient Instructions: After a Vaginal , Nutrition While Follow-up Care: Rell Bang MD [Primary Care Provider] -
[2025-02-12 09:21] VITALS: BP 142/80; TEMP 98.4
--- NOTE | 2025-02-12 14:13 | Labor Flowsheet ---
Labor Flowsheet Datetime Report Generated by CPN: 02/12/2025 14:13 Datetime: 02/12/2025 08:45 VITAL SIGNS NBP Sys/Ayla/Mean (mmHg): 142 : 80 : 94 Pulse: 87 Datetime: 02/11/2025 09:10 SpO2 (%): 99 Datetime: 02/10/2025 22:00 Stage of : Datetime: 02/10/2025 21:45 LaborFlag: Labor Datetime: 02/10/2025 20:59 Membranes Rupture Method: Spontaneous Amniotic Fluid Color: Clear Amniotic Fluid Amount: Scant Amniotic Fluid Odor: Normal Datetime: 02/10/2025 20:08 Temperature (C): 37.1 Datetime: 02/10/2025 19:56 UTERINE ACTIVITY Monitor Mode: External Frequency (min): 1-2 Quality: Strong Duration (sec): 60-80 Pattern: Normal: <= 5 Contractions in 10 Minutes Resting Tone (Palpate): Relaxed ASSESSMENT A Monitor Mode: External US Variability: Moderate 6-25 bpm Comments: unable to determine baseline due to position of fetus and maternal pushing efforts. Oxygen Method: Room Air Stage 2 Comments: 60 second shoulder dystocia noted. pramod and reducing the posterior arm Datetime: 02/10/2025 19:34 Vital Sign Comments: taken at 1900 Datetime: 02/10/2025 19:33 Pushing Progress: Presenting Part Visible; Pushing Effectively with Contractions Datetime: 02/10/2025 19:30 FHR Baseline Rate : 155 Datetime: 02/10/2025 19:23 Station: 3 Exam by: Brittani Sam, CNM STAGE 2 Pushing: Urge to Push Datetime: 02/10/2025 19:18 Communication Comments: RN obergt taking over care of pt at this time Datetime: 02/10/2025 19:15 Accelerations: 15X15 Datetime: 02/10/2025 19:00 Decelerations: None Datetime: 02/10/2025 18:37 COMMUNICATION Communication: RN at Bedside; RN Reviewed Strip; Provider at Bedside Datetime: 02/10/2025 18:35 I/O Interventions: Sharma Discontinued Datetime: 02/10/2025 18:32 Patient Care Comments: Pushing trial Labor/Induction: Pushing Methods Datetime: 02/10/2025 18:25 VAGINAL EXAM Dilatation (cm): 10.0 Effacement (%): 100 Datetime: 02/10/2025 18:23 Membrane Status: Ruptured Membranes Ruptured Date/Time: 02/10/2025 17:05 Datetime: 02/10/2025 17:44 Contraction Comments: IV LR Bolus started MEDICATIONS Pitocin (milliunits): Decreased to @ 2 PATIENT CARE IV/Blood Work: IV Bolus Started Datetime: 02/10/2025 17:30 Category: Category I Datetime: 02/10/2025 16:55 Monitor Interventions for UA: Lolita Adjusted Datetime: 02/10/2025 16:00 Pitocin Checklist: At Least 1 Acceleration of 15 bpm x 15 Seconds in 30 Minutes or Adequate Variability; No More than 1 Late Deceleration Occurred in Past 30 Minutes; No More than 2 Variable Decelerations > 60 Seconds in Duration and decreasing >60 bpm in 30 minutes; No More than 5 Uterine Contractions in 10 Minutes for any 20 Minute Interval; Uterus Palpates Soft between Contractions Datetime: 02/10/2025 15:51 Patient Position/Activity: Right Lateral Datetime: 02/10/2025 13:15 Medication Comments: Ephedrine 5mg given 0.1 ml of 50 mg/ ml 1ml vial Datetime: 02/10/2025 12:42 ANESTHESIA Anesthesia Plans: Epidural Epidural Procedure: Test Dose Anesthesia Comments: test dose Datetime: 02/10/2025 12:33 PROCEDURE TIME OUT Procedure Verify: Correct Patient Identity; Correct Side and Site are Marked; Accurate Procedure Consent Form; Agreement on Procedure to be Done; Correct Patient Position; Relevant Images and Results are Properly Labeled and Displayed; Addressed Need to Administer Antibiotics or Fluids for Irrigation; Safety Precautions Based on Patient History or Medication Use Datetime: 02/10/2025 11:11 Analgesics/Sedatives: Fentanyl (mcg) @ 50 mcg Datetime: 02/10/2025 11:01 TEACHING Instructional Method: Verbal; Verbalized Understanding Plan of Care: Labor Pain Management: IV Narcotics; Epidural Datetime: 02/10/2025 10:50 Monitor Interventions for FHR: Ultrasound Adjusted Datetime: 02/10/2025 10:41 PAIN Pain Relief Measures: Comfort Measures Comfort Measures: Breathing/Relaxation; Coaching Datetime: 02/10/2025 10:35 Pain Assessment Comments: Patient out of tub Datetime: 02/10/2025 09:39 Vaginal Bleeding: Normal Show Cervix, Consistency: Soft Datetime: 02/10/2025 09:38 Membrane Comments: AROM attempted by provider Datetime: 02/10/2025 09:28 Notification Reason: Labor Status
== END 2025-02-12 14:00 | disposition home or self-care (01) | DRG 807 ==
LOC: WFO 06:53 → FBP 06:56
PROVIDERS: ADMIT Obstetrics & Gynecology; ATTEND Nurse Practitioner
DX: Z37.0 Single live birth; Z3A.40 40 weeks gestation of pregnancy; O66.0 Obstructed labor due to shoulder dystocia; O70.0 First degree perineal laceration during delivery; O13.4 Gestational [pregnancy-induced] hypertension without significant proteinuria, complicating childbirth; E66.09 Other obesity due to excess calories; O99.214 Obesity complicating childbirth